=== PATIENT | male | born 1985 | race Caucasian/White ===

== ENCOUNTER → 2020-04-06 09:48 | Outpatient (CLI) | payer OTHER, SELFPAY ==
[2020-04-08 10:52] LABS: Testosterone, Total, LC/MS 304.9
== END ==
PROVIDERS: Visit Provider Urology
DX: R79.89 Other specified abnormal findings of blood chemistry (principal)
CPT/HCPCS: 36415; 84402; 84403

== ENCOUNTER 2025-03-10 09:11 | Outpatient (CLI) | payer OTHER, SELFPAY ==
[2025-03-10 18:19] LABS: Basophils # 0.1 K/mm3 (0-0.2); Basophils % 1.4 % (0.1-2.0); Eosinophils # 0.2 K/mm3 (0.0-0.4); Eosinophils % 2.9 % (0.1-12.0); Hematocrit 46.7 % (42.0-52.0); Hemoglobin 16.2 g/dL (14.1-18.0); Lymphocytes % 38.4 % (10-50); Mean Corpuscular HGB Conc 34.7 g/dL (31.8-35.4); Mean Corpuscular Hemoglobin 31.8 pg (27.0-31.2); Mean Corpuscular Volume 91.6 fl (80-94); Mean Platelet Volume 10.4 fl (7.4-10.4); Monocytes # 0.4 K/mm3 (0.1-1.0); Monocytes % 6.8 % (1.7-9.3); Neutrophils # 2.6 K/mm3 (1.8-7.8); Neutrophils % 50.1 % (37.0-80.0); Nucleated Red Blood Cells # 0 10^3/uL; Nucleated Red Blood Cells % 0 %; Platelet Count 150 K/mm3 (142-424); Red Cell Distribution Width 12.2 % (11.5-17.5); Red Cell Distribution Width-SD 40.8 fL; White Blood Count 5.2 K/mm3 (4.8-10.8)
[2025-03-10 19:29] LABS: Albumin Level 4.6 g/dl (3.5-5.0); Chloride 104 mmol/L (98-107); Potassium 4.3 mmoL/L (3.5-5.1); Sodium 138 mmol/L (136-145)
[2025-03-10 19:32] LABS: Alanine Aminotransferase 78 U/L (12-78); Albumin/Globulin Ratio 1.4 (1.1-1.8); Alkaline Phosphatase 73 U/L (38-126); Anion Gap 13.3 mEq/L (5-15); Aspartate Amino Transferase 48 U/L (17-59); Bilirubin,Total 0.6 mg/dl (0.2-1.3); Blood Urea Nitrogen 15 mg/dl (9-20); Carbon Dioxide 25 mmol/L (22.0-30.0); Estimated Glomerular Filt Rate 75 ml/min (>60); GFR (African American) 91 ML/MIN (>60); Globulin 3.3 g/dL (1.3-3.2); Total Protein,Serum 7.9 g/dl (6.3-8.2)
[2025-03-10 19:33] LABS: Calcium 10.1 mg/dl (8.4-10.2); Glucose 112 mg/dl (74-100)
[2025-03-12 08:12] LABS: Antistreptolysin O Ab 164.6 IU/mL (0.0-200.0); Cytomegalovirus (CMV) Ab, IgG <0.60 U/mL (0.00-0.59); Cytomegalovirus (CMV) Ab, IgM <30.0 AU/mL (0.0-29.9)
[2025-03-14 18:10] LABS: EBV Ab VCA, IgM <36.0 U/mL (0.0-35.9); EBV Nuclear Antigen Ab, IgG >600.0 U/mL (0.0-17.9)
== END 2025-03-10 23:59 | disposition home or self-care (01) ==
LOC: LAB.DROPOF 03-11 10:00
PROVIDERS: PCP Nurse Practitioner; Visit Provider Nurse Practitioner
DX: R59.0 Localized enlarged lymph nodes (principal)
CPT/HCPCS: 80053; 85025; 86060; 86644; 86645; 86664; 86665